=== PATIENT | female | born 1995 | race Hispanic/Latino ===

== ENCOUNTER 2024-05-27 07:26 | Day surgery (SDC) | payer MEDICAID ==
[2024-05-27] VITALS (11 sets, daily range): BP systolic 111–130; BP diastolic 68–81; PULSE 60–74; RESP 14–18; TEMP 97.4–98.2
[~2024-05-27] VITALS: Ht 152.4 cm; Wt 101.6 kg
[2024-05-27] MEDS: 0.9%NACL 1000ML 1,000 ML IV ONE (09:28)
[2024-05-27] MEDS ORDERED: proPOFol 10 MG/ML 20ML VIAL IV ONE (10:44)
--- NOTE | 2024-05-27 12:31 | NUR ---
FULL AND COMPLETE DISCHARGE INSTRUCTIONS GIVEN TO PATIENT AND FAMILY BOTH VERBALLY AND IN WRITING. VOICED UNDERSTANDING TO GI PROCEDURE PRECAUTIONS AND FOLLOW UP PIV REMOVED WITH CATHETER TIP INTACT. W/C WITH FAMILY TO POV TO HOME.
== END 2024-05-27 12:10 | disposition home or self-care (01) ==
LOC: ENDO 07:26 → DAH 07:26 → ENDO 12:10
PROVIDERS: ATTEND Internal Medicine Gastroenterology
DX: K21.9 Gastro-esophageal reflux disease without esophagitis (principal); E66.01 Morbid (severe) obesity due to excess calories; K29.50 Unspecified chronic gastritis without bleeding; E78.5 Hyperlipidemia, unspecified; F41.9 Anxiety disorder, unspecified; F32.A Depression, unspecified; Z68.41 Body mass index [BMI] 40.0-44.9, adult; Z79.84 Long term (current) use of oral hypoglycemic drugs; Z79.899 Other long term (current) drug therapy
CPT/HCPCS: 84703; 36415; 43239; 81025; J7030; J2704; A4620; A4215; J3490